=== PATIENT | male | born 1965 | race Caucasian/White ===

== ENCOUNTER → 2023-05-13 08:02 | Outpatient (CLI) | payer OTHER, SELFPAY ==
--- NOTE | ~2023-05-13 | XR_ITS ---
EXAMINATION: XR chest 2V Exam Date/Time: 05/13/2023 8:35 CDT HISTORY: Abnormal lung sounds Comparison: None. RESULT: Lines, tubes, and devices: None. Lungs and pleura: Clear. Cardiomediastinal silhouette: Unremarkable. Other: No acute osseous or upper abdominal finding. IMPRESSION: No acute cardiopulmonary process. Reviewed, dictated and finalized at location K.
--- NOTE | ~2023-05-13 | US_ITS ---
EXAMINATION: US abdomen complete DATE: 05/13/2023 08:45 INDICATION: Unspecified viral hepatitis C without hepatic coma TECHNIQUE: Multiple grayscale and Doppler ultrasound images of the abdomen were obtained. COMPARISON: None available. FINDINGS: Pancreas not visualized. The liver is small with normal echogenicity and heterogeneous echo texture. Liver surface nodularity. Normal hepatopetal flow in the main portal vein. The gallbladder i s normal size, with wall thickening to 6 mm, no stones or sludge. The common bile duct measures 6 mm. There was no sonographic Chavez sign. The aorta and inferior vena cava are poorly visualized. The right kidney measures 10.7 x 4.8 x 5.6 cm. The left kidney measures 11.2 x 5.1 x 6.5 cm. The kidn eys demonstrate normal parenchymal echogenicity. There is no hydronephrosis. The spleen contains an e chogenic hypervascular lesion that most likely represents a hemangioma. Spleen measures 16.9 cm. Smal l volume peritoneal fluid. IMPRESSION: Pancreas, IVC, and aorta poorly visualized. Cirrhosis. Splenomegaly. Likely splenic hemangioma. Gallb ladder wall thickening, a nonspecific finding in the setting of chronic liver disease. Mild ascites. Reviewed, dictated and finalized at location K. IMPRESSION: Pancreas, IVC, and aorta poorly visualized. Cirrhosis. Splenomegaly. Likely spl enic hemangioma. Gallbladder wall thickening, a nonspecific finding in the sett ing of chronic liver disease. Mild ascites.
== END ==
PROVIDERS: PCP Internal Medicine; Visit Provider Internal Medicine
DX: B19.20 Unspecified viral hepatitis C without hepatic coma (principal); R18.8 Other ascites
CPT/HCPCS: 71046; 76700

== ENCOUNTER 2023-05-21 09:33 | Outpatient (CLI) | payer OTHER, SELFPAY ==
[2023-05-21 10:20] LABS: Hematocrit 45.5 % (42.0-52.0); Hemoglobin 15.8 g/dL (14.0-18.0); Immature Platelet Fraction Pct 10.3 % (0.9-11.2); Mean Corpuscular HGB Conc 34.7 g/dl (32-36); Mean Corpuscular Hemoglobin 35.3 pg (26-34); Mean Corpuscular Volume 101.6 fl (80-100); Mean Platelet Volume 11.8 fl (7.4-10.4); Platelet Count Result 43 k/mm3 (150-375); Red Blood Count 4.48 M/mm3 (4.6-6.20); White Blood Count 4.8 K/mm3 (4.5-10.0)
[2023-05-21 10:30] LABS: Anion Gap 7 mmol/L (8-16); Blood Urea Nitrogen 14 mg/dL (9-20); Calcium 8.5 mg/dL (8.4-10.2); Carbon Dioxide 24 mmol/L (22-30); Chloride 106 mmol/L (98-107); Estimated Glomerular Filt Rate > 60; Glucose 101 mg/dL (65-110); Potassium 4.2 mmol/L (3.4-5.0); Sodium 137 mmol/L (137-145)
[2023-05-21 10:33] LABS: INR 1.3; Prothrombin Time 16.4 Seconds (11.1-14.7)
[2023-05-21 11:59] LABS: Hepatitis B Surface Anti Res Negative
[2023-05-24 13:43] LABS: Hepatitis C Viral RNA PCR 1110000 IU/mL
[2023-05-25 10:20] LABS: Actin Antibody (IgG) 22 U (<20); Ceruloplasmin 26 mg/dL (18-36)
[2023-05-26 11:08] LABS: LKM 1 Antibody <=20.0 U (<=20.0)
[2023-05-27 13:43] LABS: Anti Nuclear Antibody Titer 1:40 (Negative)
[2023-05-27 15:52] LABS: Alpha Fetoprotein Tumor Marker 46.9 ng/mL (<6.1)
[2023-05-27 19:18] LABS: HCV Genotype, LiPA 1a
== END 2023-05-21 09:34 | disposition home or self-care (01) ==
LOC: ANHLAB 09:34
PROVIDERS: PCP Internal Medicine; Visit Provider Nurse Practitioner
DX: B18.2 Chronic viral hepatitis C (principal); D68.9 Coagulation defect, unspecified; D69.6 Thrombocytopenia, unspecified; K74.60 Unspecified cirrhosis of liver; R74.8 Abnormal levels of other serum enzymes; R77.2 Abnormality of alphafetoprotein
CPT/HCPCS: 36415; 80048; 82105; 82390; 82728; 85027; 85055; 85610; 86038; 86039; 86364; 86376; 86706; 87522; 87902

== ENCOUNTER 2023-05-28 16:49 | Outpatient (CLI) | payer OTHER, SELFPAY ==
[2023-05-28 17:26] LABS: Alanine Aminotransferase 89 U/L (6-50); Albumin Level 3.2 g/dL (3.5-5.1); Alkaline Phosphatase 318 U/L (38-126); Aspartate Amino Transferase 133 U/L (17-59); Bilirubin,Total 1.9 mg/dL (0.2-1.3)
[2023-05-28 17:27] LABS: Ammonia 33 umol/L (9-30)
[2023-05-28 18:05] LABS: HIV 1/2 Ab P24 Ag Result Negative (Negative)
[2023-05-28 19:02] LABS: Iron 96 ug/dL (49-181)
[2023-05-28 19:12] LABS: Percent Iron Saturation 42 % (20-50)
[2023-06-01 22:28] LABS: Mitochondrial (M2) Ab (IgG) <=20.0 U (<=20.0)
[2023-06-02 09:14] LABS: Alpha-1-Antitrypsin, QN 154 mg/dL (83-199)
[2023-06-03 13:10] LABS: Hepatitis A Antibody Total Reactive (Nonreactive)
== END 2023-05-28 16:50 | disposition home or self-care (01) ==
LOC: ANHLAB 16:50
PROVIDERS: Visit Provider Nurse Practitioner
DX: B18.2 Chronic viral hepatitis C (principal); D68.9 Coagulation defect, unspecified; D69.6 Thrombocytopenia, unspecified; K74.60 Unspecified cirrhosis of liver; R74.8 Abnormal levels of other serum enzymes; R77.2 Abnormality of alphafetoprotein; R41.3 Other amnesia; R79.89 Other specified abnormal findings of blood chemistry
CPT/HCPCS: 36415; 80076; 81256; 82103; 82140; 83520; 83540; 83550; 86703; 86708; G0432

== ENCOUNTER 2023-06-01 01:16 | Day surgery (SDC) | payer OTHER, SELFPAY ==
[2023-05-28 13:27] VITALS: BMI 34.4
[2023-06-01 10:13] VITALS: BP 167/82; PULSE 93; RESP 18; TEMP 36.4; O2SAT 99
[2023-06-01] MEDS: LACTATED RINGERS 1,000 ML 150 ML IV CONT (10:23)
--- NOTE | 2023-06-01 10:36 | WPDANESEPPF ---
Anes - Initial Pre Proc Eval Procedure: Operation Date: 06/01/23 11:30 Proposed Procedures p Esophagogastroduodenoscopy - Boom Mondragon MD Date/Time: 06/01/23 10:36 Surgeon: Boom Mondragon MD Pre Op Diagnosis: cirrhosis of liver, Chronic viral hepatitis Patient Data Age: 57 Gender: M Height: 1.78 m Weight: 110 kg Last Vital Signs Temp 97.6 F 06/01/23 10:13 Pulse 93 06/01/23 10:13 Resp 18 06/01/23 10:13 BP 167/82 H 06/01/23 10:13 Pulse Ox 99 06/01/23 10:13 O2 Del Method Room Air 06/01/23 10:13 Allergies Allergy/AdvReac Type Severity Reaction Status Date / Time shellfish derived Allergy Mild Swelling Verified 06/01/23 10:11 Home Medications Medication Instructions Recorded Confirmed Type No Home Medications 06/01/23 06/01/23 History Patient hx anesthesia problems: none Family hx anesthesia problems: none Results Review: All pre-operative results and documents have been reviewed as part of the pre-operative evaluation. [facility] Past Medical History Medical History (Updated 05/21/23 @ 13:09 by Snow Dominguez APRN) Ascites Cirrhosis Coagulopathy Colon cancer screening Elevated AFP Elevated ferritin Elevated liver enzymes Hepatitis C, chronic History of intravenous drug abuse Memory deficit Obesity Thrombocytopenia Family History Family History (Updated 05/21/23 @ 08:24 by Babs Norwood MA) Father Heart disease Social History Social History (Updated 05/21/23 @ 08:24 by Babs Norwood MA) Smoking status: Never smoker Alcohol intake: current Drinks per week: 2 Alcohol use details: occasional Substance use: former Substance use type: marijuana Living arrangements: with family Occupation/Education: occupation Gender identity (if verbalized by the patient): Male Spiritual care concerns: No Anes - Eval Final PreProcedure Day of Procedure 06/01/23 10:36 Patient weight: obese Heart: regular rate and rhythm Lungs: clear to auscultation Airway: Mallampati scale class II Neurological: alert and oriented Last oral intake: >/= 8 hours ASA classification: III Emergent: no Anesthetic plan: proceed Anesthesia type and monitoring: general GIVS and standard monitoring Results Review: All pre-operative results and documents have been reviewed as part of the pre-operative evaluation. Informed Consent: The patient's anesthetic plan and its attendant risks and benefits were discussed with the patient/family/POA. Questions were solicited and answers provided to the satisfaction of the patient/family/POA.
--- NOTE | 2023-06-01 10:53 | WPDHPUPDATE1 ---
History and Physical Update Update Date/Time: 06/01/23 10:53 History and Physical has been reviewed, including an updated exam of the patient. There are NO changes in the patient's condition. Risks, benefits, and alternatives have been discussed and questions answered. Patient agrees to proceed with procedure.
[2023-06-01 11:06] VITALS: BP 154/90; PULSE 90; RESP 29; O2SAT 97
[2023-06-01 11:16] VITALS: BP 156/87; PULSE 85; RESP 24; O2SAT 96
[2023-06-01 11:26] VITALS: BP 154/92; PULSE 76; RESP 17; O2SAT 97
== END 2023-06-01 11:36 | disposition home or self-care (01) ==
PROVIDERS: PCP Internal Medicine; Visit Provider Internal Medicine Gastroenterology
PROC: 0DJ08ZZ Inspection of Upper Intestinal Tract, Via Natural or Artificial Opening Endoscopic (ICD-10-PCS; CPT 43235; principal; 2023-06-01 11:30)
DX: K74.60 Unspecified cirrhosis of liver (principal); I85.10 Secondary esophageal varices without bleeding; K29.70 Gastritis, unspecified, without bleeding; B18.2 Chronic viral hepatitis C; E66.9 Obesity, unspecified; Z68.34 Body mass index [BMI] 34.0-34.9, adult
CPT/HCPCS: 43244; J2704; J7120

== ENCOUNTER → 2023-06-03 07:47 | Outpatient (CLI) | payer OTHER, SELFPAY ==
--- NOTE | ~2023-06-03 | MR_ITS ---
EXAMINATION: MR abdomen wo/w con DATE: 06/03/2023 08:48 INDICATION: Cirrhosis. Elevated AFP. Hepatitis C. TECHNIQUE: Magnetic resonance imaging (MRI) of the abdomen was performed without and with 20 mL Multi angel intravenous contrast. Sequences included coronal T2-weighted SS-FSE, coronal and axial FS 2D-F IESTA, axial STIR FSE, axial T2-weighted SS-FSE, axial T2-weighted FS SS-FSE, axial diffusion-weighte d SE, axial dual-echo T1-weighted FSPGR, and axial and coronal T1-weighted LAVA. Postcontrast axial T 1-weighted LAVA images were obtained in a time course. Postcontrast coronal T1-weighted LAVA images w ere obtained. COMPARISON: None. FINDINGS: Heart size is normal. No pericardial or pleural effusion. Moderate amount of ascites throughout the a bdomen and visualized pelvis. There is an shrunken and nodular cirrhotic liver. There is mild relativ e decreased signal throughout the liver on the in phase versus the opposed phase imaging which can be seen in the setting of hemachromatosis. 2.7 cm lesion at the dome of the liver which is mildly T1 an d T2 hyperintense relatively surrounding liver with mild restricted diffusion. The lesion demonstrate s mild arterial phase hyperenhancement relative to the surrounding liver without a peripheral capsule and which appears equalized the surrounding liver on the 5 and 10 minute delayed images without evid ent washout. This be consistent with a LI-RADS 4 lesion. There are multiple small focus of significan tly decreased signal scattered throughout the liver most clearly visualized on the post contrast imag ing which could be related to either cirrhosis or small calcified granulomata.. Prominent splenomegal y measuring 17.9 x 17.4 x 9.1 cm and consistent with secondary portal venous hypertension. Gallbladde r, bilateral adrenal glands and kidneys are normal. There is also mild decreased signal on in phase v ersus opposed phase imaging in the pancreas which can also be seen with hemachromatosis particularly in the setting of cirrhosis. Visualized portion of the bowels are unremarkable with no obstruction. N o pathologically enlarged abdominal lymphadenopathy. Bone marrow signal is normal throughout. IMPRESSION: 1. Cirrhosis with relative decreased signal on the in phase images suggesting underlying primary devon chromatosis. 2. 2.7 cm LI-RADS 4 (probably hepatocellular carcinoma) hepatic mass. Recommend multidisciplinary dis cussion particular workup. Percutaneous biopsy would be challenging given the positioning, high in th e dome of the liver. 3. Prominent splenomegaly consistent with secondary portal venous hypertension. 4. Moderate amount of ascites likely related to liver disease. Reviewed, dictated and finalized at location A. IMPRESSION: 1. Cirrhosis with relative decreased signal on the in phase images suggesting u nderlying primary hemachromatosis. 2. 2.7 cm LI-RADS 4 (probably hepatocellular carcinoma) hepatic mass. Recommend multidisciplinary discussion particular workup. Percutaneous biopsy would be c hallenging given the positioning, high in the dome of the liver. 3. Prominent splenomegaly consistent with secondary portal venous hypertension. 4. Moderate amount of ascites likely related to liver disease.
== END ==
PROVIDERS: PCP Internal Medicine; Visit Provider Nurse Practitioner
DX: B18.2 Chronic viral hepatitis C (principal); D68.9 Coagulation defect, unspecified; D69.6 Thrombocytopenia, unspecified; K74.60 Unspecified cirrhosis of liver; R74.8 Abnormal levels of other serum enzymes; R77.2 Abnormality of alphafetoprotein; R93.2 Abnormal findings on diagnostic imaging of liver and biliary tract
CPT/HCPCS: 74183; A9577

== ENCOUNTER 2023-07-15 02:12 | Day surgery (SDC) | payer OTHER, SELFPAY ==
[2023-07-02 15:06] VITALS: BMI 33.8
--- NOTE | 2023-07-13 09:55 | SUR.PREOP ---
Patient called regarding upcoming procedure. Message left on yolie'ts voicemail regarding appointment times, and procedure prep. Call back number left on pt's message.
[2023-07-15 11:22] VITALS: BP 144/78; PULSE 90; RESP 18; TEMP 36.2; O2SAT 99
[2023-07-15] MEDS: LACTATED RINGERS 1,000 ML 150 ML IV CONT (11:36)
--- NOTE | 2023-07-15 11:40 | P.PNAN_ITS ---
Anes - Initial Pre Proc Eval Procedure: Operation Date: 07/15/23 12:30 Proposed Procedures p Esophagogastroduodenoscopy - Boom Mondragon MD Date/Time: 07/15/23 11:40 Surgeon: Boom Mondragon MD Pre Op Diagnosis: esophageal varices Patient Data Age: 57 Gender: M Height: 1.78 m Weight: 107 kg Last Vital Signs Temp 97.1 F L 07/15/23 11:22 Pulse 90 07/15/23 11:22 Resp 18 07/15/23 11:22 BP 144/78 H 07/15/23 11:22 Pulse Ox 99 07/15/23 11:22 O2 Del Method Room Air 07/15/23 11:22 Allergies Allergy/AdvReac Type Severity Reaction Status Date / Time shellfish derived Allergy Mild Swelling Verified 07/15/23 11:20 Home Medications Medication Instructions Recorded Confirmed Type furosemide 20 mg tablet 20 mg PO DAILY 07/02/23 07/02/23 History spironolactone 50 mg tablet 50 mg PO DAILY 07/02/23 07/02/23 History Patient hx anesthesia problems: none Family hx anesthesia problems: none Results Review: All pre-operative results and documents have been reviewed as part of the pre- operative evaluation. [facility] Past Medical History Medical History (Updated 05/21/23 @ 13:09 by Snow Dominguez APRN) Ascites Cirrhosis Coagulopathy Colon cancer screening Elevated AFP Elevated ferritin Elevated liver enzymes Hepatitis C, chronic History of intravenous drug abuse Memory deficit Obesity Thrombocytopenia Family History Family History (Updated 05/21/23 @ 08:24 by Babs Norwood MA) Father Heart disease Social History Social History (Updated 05/21/23 @ 08:24 by Babs Norwood MA) Smoking status: Never smoker Alcohol intake: current Drinks per week: 2 Alcohol use details: occasional Substance use: former Substance use type: does not use Living arrangements: with family Occupation/Education: occupation Gender identity (if verbalized by the patient): Male Spiritual care concerns: No Anes - Eval Final PreProcedure Day of Procedure 07/15/23 11:40 Patient weight: normal Heart: regular rate and rhythm Lungs: clear to auscultation Airway: Mallampati scale class II Neurological: alert and oriented Last oral intake: >/= 8 hours ASA classification: III Emergent: no Anesthetic plan: proceed Anesthesia type and monitoring: general GIVS and standard monitoring Results Review: All pre-operative results and documents have been reviewed as part of the pre- operative evaluation. Informed Consent: The patient's anesthetic plan and its attendant risks and benefits were discussed with the patient/family/POA. Questions were solicited and answers provided to the satisfaction of the patient/family/POA.
--- NOTE | 2023-07-15 12:25 | PM.HPGS ---
History of Present Illness History of Present Illness Consent: Risks, benefits, and alternatives have been discussed and questions answered. Patient agrees to proceed with procedure. Chief complaint: esophageal varices Narrative: Santi Stahl is a 57 year old male with decompensated HCV cirrhosis with ascites, treatment failure with INF years ago. Recently found to have liver lesion and just had biopsy- awaiting result but he is established with [facility] hepatology. EGD ~ 6 weeks ago with grade II EV s/p banding, here to reassess. Review of Systems Constitutional: Constitutional: Denies headache(s) and Denies weakness Eyes: Eyes: Denies blurry vision ENT: Reports Normal hearing present, Denies headache(s) and Denies neck pain Cardiovascular: Cardiovascular: Denies chest pain and Denies dyspnea Respiratory: Respiratory: Denies dyspnea Gastrointestinal: Gastrointestinal: Reports no additional gastrointestinal complaints Genitourinary: Genitourinary: Denies dysuria Musculoskeletal: Musculoskeletal: Denies neck pain Integumentary/Breasts: Skin/Breast: Denies dry skin Neurologic: Reports Normal hearing present, Denies headache(s) and Denies weakness Psychiatric: Psychiatric: Denies anxiety Endocrine: Endocrine: Denies change in body appearance Hematologic/Lymphatic: Hematologic/Lymphatic: Denies easy bleeding Allergic/Immunologic: Allergic/Immunologic: Denies urticaria PMFSH Past Medical History Medical History (Updated 07/15/23 @ 12:27 by Boom Mondragon MD) Ascites Cirrhosis Coagulopathy Colon cancer screening Elevated AFP Elevated ferritin Elevated liver enzymes Esophageal varices Hepatitis C, chronic History of intravenous drug abuse Memory deficit Obesity Thrombocytopenia Family History Family History (Updated 05/21/23 @ 08:24 by Babs Norwood MA) Father Heart disease Social History Social History (Updated 05/21/23 @ 08:24 by Babs Norwood MA) Smoking status: Never smoker Alcohol intake: current Drinks per week: 2 Alcohol use details: occasional Substance use: former Substance use type: does not use Living arrangements: with family Occupation/Education: occupation Gender identity (if verbalized by the patient): Male Spiritual care concerns: No Meds Home Medications and Allergies Home Medications Medication Instructions Recorded Confirmed Type furosemide 20 mg tablet 20 mg PO DAILY 07/02/23 07/02/23 History spironolactone 50 mg tablet 50 mg PO DAILY 07/02/23 07/02/23 History Allergies Allergy/AdvReac Type Severity Reaction Status Date / Time shellfish derived Allergy Mild Swelling Verified 07/15/23 11:20 Vital Signs Vital Signs - 24 hr 07/15/23 11:22 Temperature 97.1 F L Pulse Rate 90 Respiratory Rate 18 Blood Pressure 144/78 H Pulse Oximetry 99 Oxygen Delivery Room Air Exam Const: General: comfortable and no acute distress HENMT: Face/Nose/Sinus: Normal nares present Eyes: General: appearance normal, both eyes and all related structures Neck: Neck: no JVD Resp: Auscultation: clear to auscultation bilaterally Cardio: Rate: regular rate Rhythm: regular rhythm GI: Inspection: non-distended GI Palp: Yes Soft to palpation Skin: General skin exam: normal color Neuro: General: gait normal Speech: normal speech Extrem: General: normal to inspection Psych: Mental Status: mental status grossly normal Assessment and Plan Assessment and plan (1) Esophageal varices: Code(s): I85.00 - Esophageal varices without bleeding Status: Acute Assessment and Plan: egd to reassess, if still large size then will proceed with more banding denies gib (2) Hepatitis C, chronic: Code(s): B18.2 - Chronic viral hepatitis C Status: Acute (3) Cirrhosis: Code(s): K74.60 - Unspecified cirrhosis of liver Status: Acute Assessment and Plan: recently saw hepatol
[2023-07-15 12:44] VITALS: BP 119/61; PULSE 87; RESP 22; O2SAT 99
[2023-07-15 12:54] VITALS: BP 122/70; PULSE 83; RESP 18; O2SAT 99
--- NOTE | 2023-07-15 12:54 | SUR.PHASEII ---
1246 awoke for anesthesia with epigastric pain, 6-7 on pain scale. Drank sips of 7-up. order received for fentanyl, offered to patient but he declined, states pain is subsiding
[2023-07-15 13:04] VITALS: BP 135/68; PULSE 79; RESP 23; O2SAT 99
== END 2023-07-15 13:13 | disposition home or self-care (01) ==
PROVIDERS: PCP Internal Medicine; Visit Provider Internal Medicine Gastroenterology
PROC: 0DJ08ZZ Inspection of Upper Intestinal Tract, Via Natural or Artificial Opening Endoscopic (ICD-10-PCS; CPT 43235; principal; 2023-07-15 12:30)
DX: K74.60 Unspecified cirrhosis of liver (principal); I85.10 Secondary esophageal varices without bleeding; B18.2 Chronic viral hepatitis C; K29.70 Gastritis, unspecified, without bleeding; R18.8 Other ascites
CPT/HCPCS: 43244; J2704; J7120

== ENCOUNTER 2023-08-26 00:49 | Day surgery (SDC) | payer OTHER, SELFPAY ==
[2023-08-10 14:32] VITALS: BMI 33.9
--- NOTE | 2023-08-24 09:37 | SUR.PREOP ---
Patient called regarding upcoming procedure. Reviewed preop instructions, appointment times, and procedure prep.
[2023-08-26 12:25] VITALS: BP 138/78; PULSE 88; RESP 18; TEMP 36.4; O2SAT 98
[2023-08-26] MEDS: LACTATED RINGERS 1,000 ML 150 ML IV CONT (12:35)
--- NOTE | 2023-08-26 12:40 | P.PNAN_ITS ---
Anes - Initial Pre Proc Eval Procedure: Operation Date: 08/26/23 13:30 Proposed Procedures p Esophagogastroduodenoscopy - Boom Mondragon MD Date/Time: 08/26/23 12:40 Surgeon: Boom Mondragon MD Pre Op Diagnosis: Esophageal Varices Patient Data Age: 58 Gender: M Height: 1.78 m Weight: 108.4 kg Last Vital Signs Temp 36.4 C L 08/26/23 12:25 Pulse 88 08/26/23 12:25 Resp 18 08/26/23 12:25 BP 138/78 08/26/23 12:25 Pulse Ox 98 08/26/23 12:25 O2 Del Method Room Air 08/26/23 12:25 Allergies Allergy/AdvReac Type Severity Reaction Status Date / Time shellfish derived Allergy Mild Swelling Verified 08/26/23 12:25 Home Medications Medication Instructions Recorded Confirmed Type furosemide 20 mg tablet 20 mg PO DAILY 07/02/23 08/10/23 History spironolactone 50 mg tablet 50 mg PO DAILY 07/02/23 08/10/23 History Patient hx anesthesia problems: none Family hx anesthesia problems: none Results Review: All pre-operative results and documents have been reviewed as part of the pre- operative evaluation. [facility] Past Medical History Medical History Ascites Cirrhosis Coagulopathy Colon cancer screening Elevated AFP Elevated ferritin Elevated liver enzymes Esophageal varices Hepatitis C, chronic History of intravenous drug abuse Memory deficit Obesity Thrombocytopenia Family History Family History Father Heart disease Social History Social History Smoking status: Never smoker Alcohol intake: former Drinks per week: 0 (previous occasional social ) Substance use: former Substance use type: former substance user Other substance usage details: IV drug use Last use: 1987 Living arrangements: with family Occupation/Education: occupation Gender identity (if verbalized by the patient): Male Spiritual care concerns: No Anes - Eval Final PreProcedure Day of Procedure 08/26/23 12:40 Patient weight: obese Heart: regular rate and rhythm Lungs: clear to auscultation Airway: Mallampati scale class II Neurological: alert and oriented Last oral intake: >/= 8 hours ASA classification: IV Emergent: no Anesthetic plan: proceed Anesthesia type and monitoring: general GIVS and standard monitoring Results Review: All pre-operative results and documents have been reviewed as part of the pre- operative evaluation. Informed Consent: The patient's anesthetic plan and its attendant risks and benefits were discussed with the patient/family/POA. Questions were solicited and answers provided to the satisfaction of the patient/family/POA.
--- NOTE | 2023-08-26 12:57 | PM.HPGS ---
History of Present Illness History of Present Illness Consent: Risks, benefits, and alternatives have been discussed and questions answered. Patient agrees to proceed with procedure. Chief complaint: Esophageal Varices Narrative: Santi Stahl is a 58 year old male here to have another EGD, he has decompensated HCV cirrhosis with ascites, treatment failure with INF years ago. Recently found to have liver lesion and just had biopsy that confirmed diagnosed of HCC (2.4 cm per patient) and he will start treatment by interventional radiologyat [facility] sometime next week. EGD ~ 6 weeks ago with grade II EV s/p banding, denies gib. He is also in the liver transplant list. Review of Systems Constitutional: Constitutional: Denies headache(s) and Denies weakness Eyes: Eyes: Denies blurry vision ENT: Reports Normal hearing present, Denies headache(s) and Denies neck pain Cardiovascular: Cardiovascular: Denies chest pain and Denies dyspnea Respiratory: Respiratory: Denies dyspnea Gastrointestinal: Gastrointestinal: Reports no additional gastrointestinal complaints Genitourinary: Genitourinary: Denies dysuria Musculoskeletal: Musculoskeletal: Denies neck pain Integumentary/Breasts: Skin/Breast: Denies dry skin Neurologic: Reports Normal hearing present, Denies headache(s) and Denies weakness Psychiatric: Psychiatric: Denies anxiety Endocrine: Endocrine: Denies change in body appearance Hematologic/Lymphatic: Hematologic/Lymphatic: Denies easy bleeding Allergic/Immunologic: Allergic/Immunologic: Denies urticaria PMFSH Past Medical History Medical History (Updated 08/26/23 @ 13:00 by Boom Mondragon MD) Ascites Cirrhosis Coagulopathy Colon cancer screening Elevated AFP Elevated ferritin Elevated liver enzymes Esophageal varices Hepatitis C, chronic Hepatocellular carcinoma History of intravenous drug abuse Memory deficit Obesity Thrombocytopenia Family History Family History Father Heart disease Social History Social History Smoking status: Never smoker Alcohol intake: former Drinks per week: 0 (previous occasional social ) Substance use: former Substance use type: former substance user Other substance usage details: IV drug use Last use: 1987 Living arrangements: with family Occupation/Education: occupation Gender identity (if verbalized by the patient): Male Spiritual care concerns: No Meds Home Medications and Allergies Home Medications Medication Instructions Recorded Confirmed Type furosemide 20 mg tablet 20 mg PO DAILY 07/02/23 08/10/23 History spironolactone 50 mg tablet 50 mg PO DAILY 07/02/23 08/10/23 History Allergies Allergy/AdvReac Type Severity Reaction Status Date / Time shellfish derived Allergy Mild Swelling Verified 08/26/23 12:25 Vital Signs Vital Signs - 24 hr 08/26/23 12:25 Temperature 97.5 F L Pulse Rate 88 Respiratory Rate 18 Blood Pressure 138/78 Pulse Oximetry 98 Oxygen Delivery Room Air Exam Const: General: comfortable and no acute distress HENMT: Face/Nose/Sinus: Normal nares present Eyes: General: appearance normal, both eyes and all related structures Neck: Neck: no JVD Resp: Auscultation: clear to auscultation bilaterally Cardio: Rate: regular rate Rhythm: regular rhythm GI: Inspection: non-distended GI Palp: Yes Soft to palpation Skin: General skin exam: normal color Neuro: General: gait normal Speech: normal speech Extrem: General: normal to inspection Psych: Mental Status: mental status grossly normal Assessment and Plan Assessment and plan (1) Esophageal varices: Code(s): I85.00 - Esophageal varices without bleeding Status: Acute Assessment and Plan: egd to reassess if needs more banding no recent gib (2) Hepatitis C, chronic: Code(s):
[2023-08-26 13:11] VITALS: BP 126/76; PULSE 86; RESP 19; O2SAT 97
[2023-08-26 13:21] VITALS: BP 141/85; PULSE 82; RESP 18; O2SAT 96
[2023-08-26 13:31] VITALS: BP 134/83; PULSE 78; RESP 14; O2SAT 97
== END 2023-08-26 13:40 | disposition home or self-care (01) ==
PROVIDERS: PCP Internal Medicine; Visit Provider Internal Medicine Gastroenterology
PROC: 0DJ08ZZ Inspection of Upper Intestinal Tract, Via Natural or Artificial Opening Endoscopic (ICD-10-PCS; CPT 43235; principal; 2023-08-26 13:30)
DX: K74.60 Unspecified cirrhosis of liver (principal); I85.10 Secondary esophageal varices without bleeding; C22.0 Liver cell carcinoma; B18.2 Chronic viral hepatitis C; E66.9 Obesity, unspecified; Z68.34 Body mass index [BMI] 34.0-34.9, adult
CPT/HCPCS: 43235; J2405; J2704; J3010; J7120